=== PATIENT | female | born 1990 | race Two or more races ===

== ENCOUNTER 2017-12-27 01:31 | Emergency (ER) | payer OTHER ==
[~2017-12-27] VITALS: Ht 165.1 cm; Wt 63.5 kg
[2017-12-27 01:49] LABS: BASOPHILS % (AUTO) 0.9 % (0.0-2.0); EOSINOPHILS % (AUTO) 0.7 % (0.0-3.0); HEMATOCRIT 34.5 % (37.0-47.0); HEMOGLOBIN 10.6 G/DL (12.0-16.0); LYMPHOCYTES % (AUTO) 33.5 % (20.0-45.0); MEAN CORPUSCULAR VOLUME 72 FL (80-99); MONOCYTES % (AUTO) 9.2 % (1.0-10.0); NEUTROPHILS % (AUTO) 55.8 % (45.0-75.0); PLATELET COUNT 198 K/UL (150-450); WHITE BLOOD COUNT 5.8 K/UL (4.8-10.8)
[2017-12-27 01:58] LABS: ANION GAP 16 mmol/L (5-15); BLOOD UREA NITROGEN 10 mg/dL (7-18); CALCIUM 8.6 MG/DL (8.5-10.1); CARBON DIOXIDE 18 MMOL/L (21-32); CHLORIDE 106 MMOL/L (98-107); CREATININE 0.8 MG/DL (0.55-1.30); POTASSIUM 3.1 MMOL/L (3.5-5.1); SODIUM 140 MMOL/L (136-145)
[2017-12-27 02:02] LABS: ALANINE AMINOTRANSFERASE 18 U/L (12-78); ALBUMIN 3.8 G/DL (3.4-5.0); ALBUMIN/GLOBULIN RATIO 0.9 (1.0-2.7); ASPARTATE AMINO TRANSFERASE 27 U/L (15-37); BILIRUBIN,TOTAL 0.2 MG/DL (0.2-1.0)
[2017-12-27 02:27] LABS: ALKALINE PHOSPHATASE 66 U/L (46-116)
[2017-12-27 04:00] VITALS: BP 98/53
--- NOTE | 2017-12-27 05:38 | Emergency Room Report ---
History of Present Illness General Chief Complaint: Alcohol Intoxication Source: Family Member, EMS Present Illness HPI Patient was at a holiday constitution party. Apparently she drank a lot of alcohol. She was unresponsive (GCS 4). Vomited prior to becoming less responsive in friend' s car. Paramedics transported the patient here. Glucose was normal. No evidence of any trauma. No history of seizures and no witnessed seizure activity. No further history is available. Allergies: Coded Allergies: UNABLE TO ASSESS (Unverified , 12/27/17) patient is under the influence and sleeping Patient History Limited by: medical condition Past Medical History: see triage record Social History: Reports: alcohol use Social History Narrative was with friends Last Menstrual Period: unk Now: No - unk Reviewed Nursing Documentation: PMH: Agreed; PSxH: Agreed Review of Systems All Other Systems: limited Physical Exam Vital Signs Date Time Temp Pulse Resp B/P (MAP) Pulse Ox O2 Delivery O2 Flow Rate FiO2 12/27/17 01:24 98.4 80 16 108/74 100 12/27/17 01:45 Room Air Sp02 EP Interpretation: reviewed, normal General Appearance: no apparent distress, Stupor Head: normocephalic, atraumatic Eyes: bilateral eye PERRL, bilateral eye Scleral Injection ENT: moist mucus membranes - + gag Neck: supple Respiratory: chest non-tender, lungs clear, normal breath sounds Cardiovascular #1: regular rate, rhythm Gastrointestinal: non tender, soft, decreased bowel sounds Genitourinary: no CVA tenderness Neurologic: motor strength/tone normal, DTRs symmetric, sensory intact - min withdraw, nystagmus Psychiatric: other - stupor Skin: no rash Medical Decision Making Diagnostic Impression: Primary Impression: Acute alcoholic intoxication Qualified Codes: F10.929 - Alcohol use, unspecified with intoxication, unspecified ER Course Patient presents with altered level of consciousness was heavy smell of alcohol on the breath. Differential includes acute alcohol intoxication, electrolyte imbalance, other drug ingestion amongst others. Patient will be evaluated with labs. The patient will be treated with IV hydration and Zofran and Pepcid. 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 + gag - not need intubation. Due to O2 sat doubt aspiration (also gag intact). Blood alcohol at 237. Slight anemia, low bicarb and potassium. Patient is improved. Wakes fairly easily but is still unsteady on her feet at 5 :30. Denies SI or HI. Also denies pain or medical problems or complaints. Ambulatory at 6:00. Dad here to take home. Discussed moderation. Patient stable for outpatient treatment and observation. Rhythm Strip Diag. Results Rhythm: NSR, no PVC's, no ectopy Last Vital Signs Date Time Temp Pulse Resp B/P (MAP) Pulse Ox O2 Delivery O2 Flow Rate FiO2 12/27/17 06:15 98.4 74 16 104/58 100 Room Air Status: improved Disposition: HOME, SELF-CARE - with Dad Condition: Improved Referrals: [facility] (PCP) Rainer Yeh MD Dec 27, 2017 05:38
[2017-12-27 05:45] VITALS: BP 104/58
[2017-12-27 06:15] VITALS: BP 104/58
== END 2017-12-27 06:20 | disposition home or self-care (01) ==
LOC: EDBD 01:31 → EMR 02:00
DX: F10.129 Alcohol abuse with intoxication, unspecified (principal)
CPT/HCPCS: 36415; 80053; 80307; 85025; 96361; 96374; 96375; 99284; G0480; J2405; S0028; 80329